=== PATIENT | female | born 1985 | race Caucasian/White ===

== ENCOUNTER 2017-09-23 16:05 | Emergency (ER) | payer OTHER ==
[~2017-09-23] VITALS: Ht 160 cm; Wt 85.7 kg
[2017-09-23] MEDS ORDERED: LUPUS MED (16:22)
[2017-09-23] MEDS ORDERED: HYDROXYCHLOROQ200 M1 PO (16:40)
[2017-09-23] MEDS ORDERED: IBUPROFEN 800800 MG PO (17:16)
[2017-09-23] MEDS ORDERED: ACETAMINOPHEN-1 EAC1 PO (17:16)
[2017-09-23 17:36] VITALS: BP 128/89
== END 2017-09-23 17:37 | disposition home or self-care (01) ==
LOC: M.ERS 16:05
DX: S63.501A Unspecified sprain of right wrist, initial encounter (principal); X58.XXXA Exposure to other specified factors, initial encounter; Y93.89 Activity, other specified; Y92.89 Other specified places as the place of occurrence of the external cause; Y99.8 Other external cause status